=== PATIENT | male | born 1945 | race Caucasian/White ===

== ENCOUNTER 2017-12-28 14:34 | Emergency (ER) | payer MEDICARE ==
[~2017-12-28] VITALS: Ht 175.3 cm; Wt 79.4 kg
[2017-12-28] MEDS ORDERED: fentaNYL INJECTION 100 MCG/2 ML AMP IVP STA ×2 (14:53→15:44)
[2017-12-28 15:03] LABS: BASOPHILS % (AUTO) 0 % (0-10); EOSINOPHILS % (AUTO) 1 % (0-10); HEMATOCRIT 39 % (40-54); HEMOGLOBIN 13.6 G/DL (13.3-17.7); LYMPHOCYTES # (AUTO) 0.8 X 10^3 (1.0-4.0); LYMPHOCYTES % (AUTO) 14 % (12-44); MEAN CORPUSCULAR HEMOGLOBIN 32 PG (25-34); MEAN CORPUSCULAR HGB CONC 35 G/DL (32-36); MEAN CORPUSCULAR VOLUME 91 FL (80-99); MEAN PLATELET VOLUME 9.4 FL (7.4-10.4); MONOCYTES # (AUTO) 0.6 X 10^3 (0.0-1.0); MONOCYTES % (AUTO) 11 % (0-12); NEUTROPHILS # (AUTO) 4.2 X 10^3 (1.8-7.8); NEUTROPHILS % (AUTO) 74 % (42-75); PLATELET COUNT 151 10^3/uL (130-400); RED BLOOD COUNT 4.23 10^6/uL (4.35-5.85); RED CELL DISTRIBUTION WIDTH 13.6 % (10.0-14.5); WHITE BLOOD COUNT 5.6 10^3/uL (4.3-11.0)
[2017-12-28 15:23] LABS: ALBUMIN 4.2 GM/DL (3.2-4.5); BILIRUBIN,TOTAL 1.2 MG/DL (0.1-1.0); CALCIUM 9.3 MG/DL (8.5-10.1); CREATININE SERUM 1.52 MG/DL (0.60-1.30); POTASSIUM 4.9 MMOL/L (3.6-5.0); TOTAL PROTEIN 6.9 GM/DL (6.4-8.2)
--- NOTE | 2017-12-28 15:23 | Diagnostic Imaging Report ---
EXAMINATION: Left ankle at 3:07 p.m. INDICATION: Fell. Three views were obtained. There are no prior studies available for comparison. FINDINGS: The talus does appear to be dislocated medially with respect to the calcaneus. There also appears to be a nondisplaced fracture involving the talar neck. In addition, there is an avulsion fracture of the lateral aspect of the lateral malleolus. The tibia where visualized seems to be intact. Even so, I would recommend that CT be performed for further evaluation. There is also considerable soft tissue edema about the ankle joint. IMPRESSION: 1. There is a dislocation of the talocalcaneal articulation, and there are fractures of the talar neck and lateral malleolus. CT would be recommended for further evaluation. 2. These results were called to Dr. Mathews in the ER. CRITICAL FINDING Dictated by: Dictated on workstation # [id number]
--- NOTE | 2017-12-28 15:25 | Diagnostic Imaging Report ---
EXAMINATION: Left foot at 3:08 p.m. INDICATION: Injury, foot pain. Three views were obtained. FINDINGS: As noted on the left ankle exam performed earlier today, there are fractures of the lateral malleolus and the talar neck, and the talus itself appears to have been dislocated medially with respect to its articulation with the navicular bone. There is approximately 1 cm of overlap of the talus with the medial aspect of the navicular bone. There may also be fractures involving the articular surfaces of the talus and the calcaneus. CT would be recommended for further evaluation. No other bony abnormality is appreciated. IMPRESSION: There is disruption of the talonavicular and talocalcaneal articulations. There also appear to be fractures of the talar neck and the lateral malleolus, and there may be fractures of the talar body and calcaneus as well. CT would be recommended for further study. Dictated by: Dictated on workstation # [id number]
--- NOTE | 2017-12-28 15:34 | ED Lower Extremity ---
General Chief Complaint: Trauma-Non Activation Stated Complaint: FELL AND HURT ANKLE Nursing Triage Note: TO ROOM PER W/C REPORTS THAT HE FEEL 8FT LANDING ON FEET. DID NOT HIT HEAD NO LOC. 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 He has an from the irrigation pipe and jumped down approximately 8 feet. He had immediate onset of pain and deformity in the left ankle. He denies loss of consciousness or head injury at the time of the fall. 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 He takes aspirin 81 mg daily and no other blood thinners. Patient rates his pain 8/10, he took no [id number] or prescription pain medication prior to arrival. Onset: this afternoon Pain/Injury Location: left foot, left ankle Method of Injury: fell Modifying Factors: Improves With Immobilization (AMANDA GOMEZ) Allergies and Home Medications Allergies Coded Allergies: No Known Drug Allergies (Unverified , 12/28/17) Patient Home Medication List Home Medication List Reviewed: Yes (AMANAD GOMEZ) Constitutional: no symptoms reported, see HPI EENTM: see HPI, no symptoms reported Respiratory: no symptoms reported, see HPI; No dyspnea on exertion, No short of breath Cardiovascular: no symptoms reported, see HPI; No chest pain Gastrointestinal: no symptoms reported, see HPI Genitourinary: no symptoms reported, see HPI Musculoskeletal: see HPI; No back pain; joint pain (left ankle and foot), joint swelling, muscle pain Skin: no symptoms reported, see HPI Psychiatric/Neurological: No Symptoms Reported, See HPI (AMANDA GOMEZ) All Other Systems Reviewed Negative Unless Noted: Yes (AMANDA GOMEZ) Past Yjzevls-Sghgcd-Kqyqum Hx Past Med/Social Hx: Reviewed Nursing Past Med/Soc Hx (AMANDA GOMEZ) Patient Social History Alcohol Use: Denies Use Recreational Drug Use: No Smoking Status: Never a Smoker Recent Foreign Travel: No Contact w/Someone Who Travel: No Recent Infectious Disease Expo: No (AMANDA GOMEZ) Past Medical History Surgeries: Yes Orthopedic Cardiac: Yes High Cholesterol, Hypertension Neurological: No Genitourinary: No Gastrointestinal: No Musculoskeletal: No Endocrine: No HEENT: No Cancer: No Psychosocial: No Integumentary: No (PATRICIAAMANDA WESTON) Physical Exam Vital Signs Vital Signs - First Documented 12/28/17 14:48 Temp 97.5 Pulse 84 Resp 18 B/P (MAP) 138/92 (107) Pulse Ox 96 (CHARLIE FAY MD) Vital Signs Capillary Refill : Less Than 3 Seconds (PATRICIAAMANDA WESTON) General Appearance: WD/WN, no apparent distress HEENT: PERRL/EOMI, normal ENT inspection, TMs normal, pharynx normal Neck: non-tender, full range of motion, supple, normal inspection Cardiovascular: normal peripheral pulses (left pedal pulses 1+, right pedal pulses 2+, cap refill right LE < 3 sec. ), regular rate, rhythm Respiratory: chest non-tender, lungs clear, normal breath sounds, no respiratory distress, no accessory muscle use; No respiratory distress Gastrointestinal: normal bowel sounds, non tender, soft Back: normal inspection, no CVA tenderness, no vertebral tenderness; No decreased range of motion, No muscle spasm, No vertebral tenderness; other (in his process tenderness, full range of motion of the lumbar and cervical spine) Hips: bilateral hip non-tender, bilateral hip normal inspection, bilateral hip normal range of motion, bilateral hip no evidence of injury Knees: bilateral knee non-tender, bilateral knee normal inspection, bilateral knee normal range of motion, bilateral knee no evidence of injury Ankles: right ankle non-tender, right ankle normal inspection, right ankle normal range of motion, right ankle no evidence of injury; left ankle bone tenderness, left ankle deformity, left ankle limited range of motion, left ankle soft tissue tenderness, left ankle swelling Feet: bilateral foot non-tender, bilateral foot normal inspection, bilateral foot normal range of motion, bilateral foot no evidence of injury; left foot pain (for foot pain), left foot other (Pedal pulse 1+, cap refill < 3 sec. Sensation to touch intact, full active and passive ROM to toes. ) Neurologic/Tendon: normal sensation, normal motor functions, normal tendon functions Neurologic/Psychiatric: no motor/sensory deficits, alert, normal mood/affect, oriented x 3 Skin: normal color, warm/dry (PATRICIA,AMANDA WESTON) General Appearance: WD/WN, no apparent distress Cardiovascular: regular rate, rhythm, no murmur Respiratory: lungs clear, normal breath sounds, no respiratory distress Neurologic/Psychiatric: alert, oriented x 3 (CHARLIE FAY MD) Progress/Results/Core Measures Results/Orders Lab Results Laboratory Tests Test 12/28/17 14:58 Range/Units White Blood Count 5.6 4.3-11.0 10^3/uL Red Blood Count 4.23 L 4.35-5.85 10^6/uL Hemoglobin 13.6 13.3-17.7 G/DL Hematocrit 39 L 40-54 % Mean Corpuscular Volume 91 80-99 FL Mean Corpuscular Hemoglobin 32 25-34 PG Mean Corpuscular Hemoglobin Concent 35 32-36 G/DL Red Cell Distribution Width 13.6 10.0-14.5 % Platelet Count 151 130-400 10^3/uL Mean Platelet Volume 9.4 7.4-10.4 FL Neutrophils (%) (Auto) 74 42-75 % Lymphocytes (%) (Auto) 14 12-44 % Monocytes (%) (Auto) 11 0-12 % Eosinophils (%) (Auto) 1 0-10 % Basophils (%) (Auto) 0 0-10 % Neutrophils # (Auto) 4.2 1.8-7.8 X 10^3 Lymphocytes # (Auto) 0.8 L 1.0-4.0 X 10^3 Monocytes # (Auto) 0.6 0.0-1.0 X 10^3 Eosinophils # (Auto) 0.0 0.0-0.3 10^3/uL Basophils # (Auto) 0.0 0.0-0.1 10^3/uL Sodium Level 135 135-145 MMOL/L Potassium Level 4.9 3.6-5.0 MMOL/L Chloride Level 102 98-107 MMOL/L Carbon Dioxide Level 21 21-32 MMOL/L Anion Gap 12 5-14 MMOL/L Blood Urea Nitrogen 22 H 7-18 MG/DL Creatinine 1.52 H 0.60-1.30 MG/DL Estimat Glomerular Filtration Rate 45 BUN/Creatinine Ratio 14 Glucose Level 85 70-105 MG/DL Calcium Level 9.3 8.5-10.1 MG/DL Total Bilirubin 1.2 H 0.1-1.0 MG/DL Aspartate Amino Transf (AST/SGOT) 41 H 5-34 U/L Alanine Aminotransferase (ALT/SGPT) 26 0-55 U/L Alkaline Phosphatase 57 40-136 U/L Total Protein 6.9 6.4-8.2 GM/DL Albumin 4.2 3.2-4.5 GM/DL (CHARLIE FAY MD) My Orders Orders - CHARLIE FAY MD Ct Extremity Lower Left Wo (12/28/17 15:19) (CHARLIE FAY MD) Vital Signs/I&O 12/28/17 14:48 Temp 97.5 Pulse 84 Resp 18 B/P (MAP) 138/92 (107) Pulse Ox 96 (CHARLIE FAY MD) Blood Pressure Mean: 107 Progress Progress Note : Time: 14:48 Progress Note Initial evaluation completed, obvious deformity noted to the left ankle, ice pack has been in place since the patient left his home, recommended x-rays of the left ankle. Fentanyl 25 g IV 1515 spoke with radiology, recommended CT of the left ankle. Discussed patients assessment and plan of care with Dr. Fay, concurred. We'll obtain x-rays of the pelvis and bilateral hips. [address] Sanchez per phone, we'll notify him after the CT study has been completed. He recommended transfer patient to trauma center. 1545 patient reports pain has worsened, we'll give fentanyl 50 g IV. [address] Desir at [facility], recommended transfer to [facility] trauma center with foot and ankle specialist. Creatinine 1.52, will give normal saline 1 L IV [address] Montanez agreed to accept patient to trauma service at [facility]. [facility] notified. Posterior splint applied, pt tolerated well. Pain controlled at this time. 1620 Bed at 5108-2, RN to call report [phone]. All studies to [facility] for per radiology. (AMANDA GOMEZ) Progress Note : Progress Note I have seen and evaluated the patient and agree with above except as indicated. I agree with the plan of care. Patient has significant fracture dislocation of the left ankle. This is outside of the scope of capabilities for this facility as well as closest trauma facility. He will require academic center [facility] which the [facility] is [facility]. Transfer proceedings initiating completed by Amanda Gomez APRN. Pain has been controlled with doses of fentanyl. I did discuss the transfer require with the patient and family and they agree. He will go by EMS. Posterior splint placed by Amanda Gomez. Dorsalis pedis pulse weak but palpable to the left foot and calf refill less than 3 seconds. Retains full range of motion of all 5 toes and has sensation in all 5 toes on exam after placement of splint. (CHARLIE FAY MD) Initial ECG Impression Date: Dec 28, 2017 Initial ECG Impression Time: 15:56 Initial ECG Rate: 78 Initial ECG Rhythm: Normal Sinus Initial ECG Intervals: Normal Initial ECG Intervals UT 148 QRSD 74 QT 360 QTc 411 [place] P 69 QRS 0 T 17 Initial ECG Impression: Normal Initial ECG Comparisson: No Previous ECG Available (AMANDA GOMEZ) Diagnostic Imaging Diagonstic Imaging: Xray Plain Films/CT/US/NM/MRI: other (foot) Comments NAME: ARNOLDO LEI MED REC#: [id number] PT STATUS: REG ER : 1945 PHYSICIAN: AMANDA GOMEZ ADMIT DATE: 12/28/17/ER Draft Date of Exam:12/28/17 FOOT, LEFT, 3 VIEWS EXAMINATION: Left foot at 3:08 p.m. INDICATION: Injury, foot pain. Three views were obtained. FINDINGS: As noted on the left ankle exam performed earlier today, there are fractures of the lateral malleolus and the talar neck, and the talus itself appears to have been dislocated medially with respect to its articulation with the navicular bone. There is approximately 1 cm of overlap of the talus with the medial aspect of the navicular bone. There may also be fractures involving the articular surfaces of the talus and the calcaneus. CT would be recommended for further evaluation. No other bony abnormality is appreciated. IMPRESSION: There is disruption of the talonavicular and talocalcaneal articulations. There also appear to be fractures of the talar neck and the lateral malleolus, and there may be fractures of the talar body and calcaneus as well. CT would be recommended for further study. Dictated on workstation # [id number] Dict: 12/28/17 1520 Trans: 12/28/17 1525 [id number] Interpreted by: DENIS GALLOWAY MD Electronically signed by: Reviewed: Reviewed by Me, Reviewed/Discussed (with Dr. Fay) Diagonstic Imaging: Xray Plain Films/CT/US/NM/MRI: ankle Comments NAME: ARNOLDO LEI [facility] REC#: [id number] PT STATUS: REG ER : 1945 PHYSICIAN: AMANDA GOMEZ ADMIT DATE: 12/28/17/ER Draft Date of Exam:12/28/17 ANKLE, LEFT, 3 VIEWS EXAMINATION: Left ankle at 3:07 p.m. INDICATION: Fell. Three views were obtained. There are no prior studies available for comparison. FINDINGS: The talus does appear to be dislocated medially with respect to the calcaneus. There also appears to be a nondisplaced fracture involving the talar neck. In addition, there is an avulsion fracture of the lateral aspect of the lateral malleolus. The tibia where visualized seems to be intact. Even so, I would recommend that CT be performed for further evaluation. There is also considerable soft tissue edema about the ankle joint. IMPRESSION: 1. There is a dislocation of the talocalcaneal articulation, and there are fractures of the talar neck and lateral malleolus. CT would be recommended for further evaluation. 2. These results were called to Dr. Fay in the ER. CRITICAL FINDING Dictated on workstation # [id number] Dict: 12/28/17 1514 Trans: 12/28/17 1522 [id number] Interpreted by: DENIS GALLOWAY MD Electronically signed by: Reviewed: Reviewed by Me, Reviewed/Discussed (with Dr. Fay) Diagonstic Imaging: Xray Plain Films/CT/US/NM/MRI: pelvis, hip Comments NAME: ARNOLDO LEI [facility] REC#: [id number] PT STATUS: REG ER : 1945 PHYSICIAN: AMANDA GOMEZ ADMIT DATE: 12/28/17/ER Draft Date of Exam:12/28/17 PELVIS/LORAINE HIPS 5> VIEWS INDICATION: Fell. EXAMINATION: Pelvis and bilateral hips at 3:58 p.m. A single AP view of the pelvis and AP and lateral views of both hip joints were obtained. COMPARISON: There are no prior studies available for comparison. FINDINGS: There is no fracture, dislocation or acute bony abnormality evident. 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 The prosthetic components seem to be in good position. 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 There is fairly severe degenerative disc and bony disease involving the visualized lower lumbar spine. The soft tissues are unremarkable. IMPRESSION: 1. There is no evidence for an acute bony abnormality. 2. The total hip prosthesis on the left appears to be in good position. Dictated on workstation # [id number] Dict: 12/28/17 1554 Trans: 12/28/17 1602 [facility] [id number] Interpreted by: DENIS GALLOWAY MD Electronically signed by: Reviewed: Reviewed by [place] Diagonstic Imaging: CT Plain Films/CT/US/NM/MRI: ankle Comments NAME: ARNOLDO LEI MED REC#: [id number] PT STATUS: REG ER : 1945 PHYSICIAN: CHARLIE FAY MD ADMIT DATE: 12/28/17/ER Draft Date of Exam:12/28/17 CT EXTREMITY LOWER LEFT WO PROCEDURE: CT left lower extremity without contrast. TECHNIQUE: Multiple contiguous axial images were obtained through the left lower extremity without the use of intravenous contrast. Sagittal and coronal reformations were then performed. INDICATION: Trauma, ankle pain. FINDINGS: There are no previous CT lower extremity examinations available for comparison. The plain film examination of the ankle and foot performed earlier today noted disruption of the talonavicular and talocalcaneal articulations. Those findings are again evident on this exam. The axial images reveal that the talus has been dislocated medially such that it overlies the medial aspect of the navicular bone by almost 2 cm. The subtalar joint has also been disrupted, and there are comminuted fragments involving the articular surface of the talus and the calcaneus. The sagittal images also show a broad slightly displaced fracture through the superior aspect of the body of the calcaneus. There are also nondisplaced fractures extending through the posterior half of the talus. The sagittal images reveal that the talus itself is also perched along the anterior articular surface of the tibia. There is no acute fracture of the tibia, but there is a displaced fracture fragment arising from the lateral malleolus. This measures approximately 1.6 cm in maximum dimension. No other fracture or acute bony abnormality is appreciated. There is generalized soft tissue edema about the hindfoot. IMPRESSION: 1. The talus has been dislocated medially and now overlies the medial aspect of the navicular bone. There is also disruption of the subtalar joint, and there are comminuted fractures involving the calcaneus and the talus as well as fractures of the talar neck. There is an avulsion fracture of the lateral malleolus as well. The tibiotalar joint is also disrupted. 2. These results were discussed with Dr. Charlie Fay in the ER. Dictated on workstation # [id number] Dict: 12/28/17 1547 Trans: 12/28/17 1619 [id number] Interpreted by: DENIS GALLOWAY MD Electronically signed by: Reviewed: Reviewed by Me, Discussed w/Radiologist, Reviewed/Discussed (with Dr. Fay) (AMANDA GOMEZ) Departure Impression Primary Impression: Fracture dislocation of left foot joint Qualified Codes: S92.902A - Unspecified fracture of left foot, initial encounter for closed fracture Additional Impression: Fall as cause of accidental injury on farm as place of occurrence Qualified Codes: W19.XXXA - Unspecified fall, initial encounter; Y92.79 - Other farm location as the place of occurrence of the external cause Disposition: 02 XFER SHT-TRM HOSP Condition: Stable Transfer Time Spoke to Accepting Phy: 16:10 Transfer Progress Notes Spoke with Dr. Montanez from [facility] trauma services, agreed to accept patient Transfer Time: 17:15 Transfer Facility: [facility] Method of Transfer: EMS (AMANDA GOMEZ) AMANDA GOMEZ Dec 28, 2017 15:34 CHARLIE FAY MD Dec 28, 2017 16:25
--- NOTE | 2017-12-28 16:02 | Diagnostic Imaging Report ---
INDICATION: Fell. EXAMINATION: Pelvis and bilateral hips at 3:58 p.m. A single AP view of the pelvis and AP and lateral views of both hip joints were obtained. COMPARISON: There are no prior studies available for comparison. FINDINGS: There is no fracture, dislocation or acute bony abnormality evident. 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 The prosthetic components seem to be in good position. 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 There is fairly severe degenerative disc and bony disease involving the visualized lower lumbar spine. The soft tissues are unremarkable. IMPRESSION: 1. There is no evidence for an acute bony abnormality. 2. The total hip prosthesis on the left appears to be in good position. Dictated by: Dictated on workstation # [id number]
[2017-12-28] MEDS ORDERED: NS IV 1000 ML 1,000 ML IV SCH (16:08)
--- NOTE | 2017-12-28 16:20 | Diagnostic Imaging Report ---
PROCEDURE: CT left lower extremity without contrast. TECHNIQUE: Multiple contiguous axial images were obtained through the left lower extremity without the use of intravenous contrast. Sagittal and coronal reformations were then performed. INDICATION: Trauma, ankle pain. FINDINGS: There are no previous CT lower extremity examinations available for comparison. The plain film examination of the ankle and foot performed earlier today noted disruption of the talonavicular and talocalcaneal articulations. Those findings are again evident on this exam. The axial images reveal that the talus has been dislocated medially such that it overlies the medial aspect of the navicular bone by almost 2 cm. The subtalar joint has also been disrupted, and there are comminuted fragments involving the articular surface of the talus and the calcaneus. The sagittal images also show a broad slightly displaced fracture through the superior aspect of the body of the calcaneus. There are also nondisplaced fractures extending through the posterior half of the talus and the talar neck. The sagittal images reveal that the talus itself is also perched along the anterior articular surface of the tibia. There is no acute fracture of the tibia, but there is a displaced fracture fragment arising from the lateral malleolus. This measures approximately 1.6 cm in maximum dimension. No other fracture or acute bony abnormality is appreciated. There is generalized soft tissue edema about the hindfoot. IMPRESSION: 1. The talus has been dislocated medially and now overlies the medial aspect of the navicular bone. There is also disruption of the subtalar joint, and there are comminuted fractures involving the calcaneus and the talus as well as non-displaced fractures of the talar neck. This appearance does suggest a [place] fracture. 2. There is an avulsion fracture of the lateral malleolus as well. The tibiotalar joint is also disrupted. 2. These results were discussed with Dr. Charlie Mathews in the ER. Dictated by: Dictated on workstation # [id number]
[2017-12-28] MEDS ORDERED: D5 NS 1000 ML IV SOLUTION 1,000 ML IV ONE (16:52)
[2017-12-28 17:15] VITALS: BP 144/89
[2017-12-28 17:19] LABS: BILIRUBIN,URINE NEGATIVE (NEGATIVE); CLARITY,URINE CLEAR; COLOR,URINE YELLOW; GLUCOSE, URINE (UA) NEGATIVE (NEGATIVE); KETONES,URINE 2+ (NEGATIVE); LEUKOCYTE ESTERASE ,URINE 1+ (NEGATIVE); NITRITE,URINE NEGATIVE (NEGATIVE); PH,URINE 5 (5-9); PROTEIN,URINE NEGATIVE (NEGATIVE); UROBILINOGEN,URINE NORMAL (NORMAL)
[2017-12-28 17:27] LABS: INR 1.1 (0.8-1.4); PROTHROMBIN TIME PATIENT 13.9 SEC (12.2-14.7)
[2017-12-28 17:32] LABS: BACTERIA,URINE NEGATIVE /HPF; RBC,URINE RARE /HPF; SQUAMOUS EPITHELIAL CELL,UR RARE /HPF; WBC,URINE 0-2 /HPF
== END 2017-12-28 17:18 | disposition short-term general hospital (02) ==
LOC: ER 14:39
DX: S92.102A Unspecified fracture of left talus, initial encounter for closed fracture (principal); S92.002A Unspecified fracture of left calcaneus, initial encounter for closed fracture; S92.112A Displaced fracture of neck of left talus, initial encounter for closed fracture; S82.52XA Displaced fracture of medial malleolus of left tibia, initial encounter for closed fracture; E78.00 Pure hypercholesterolemia, unspecified; I10 Essential (primary) hypertension; Z98.890 Other specified postprocedural states; Z96.642 Presence of left artificial hip joint; W11.XXXA Fall on and from ladder, initial encounter
CPT/HCPCS: 29515; 36415; 73523; 73610; 73630; 73700; 80053; 81000; 82962; 85025; 85610; 85730; 93005; 96361; 96374; 96376